=== PATIENT | female | born 1975 | race Two or more races ===

== ENCOUNTER → 2017-02-19 | Outpatient (CLI) | payer OTHER ==
--- NOTE | 2017-02-19 16:07 | RAD ---
DATE: 02/19/2017 EXAM: MAMMO RAVEN THU MONTESAT, BREAST RIGHT HISTORY: Lump right breast. The patient, however, reports that she has not felt this lump for approximately 5 months. COMPARISON: 07/05/2015 FINDINGS: Breast Density: SCATTERED The breast parenchyma shows scattered fibroglandular densities. Breast parenchyma level B. In addition to routine views implant displacement views were obtained. No mass is seen. No suspect calcifications are seen. The area of concern in the right breast was scanned. The right breast was scanned from approximately the 6 to 9:00 position. No mass or abnormality is seen IMPRESSION: Benign findings. If there is a discrete, palpable, mass in either breast biopsy may be warranted despite unremarkable imaging BI-RADS CATEGORY: 2 BENIGN FINDING(S) RECOMMENDED FOLLOW-UP: 12M 12 MONTH FOLLOW-UP PQRS compliance statement: Patient information was entered into a reminder system with a target due date 02/20/2028 for the next mammogram. Mammography is a sensitive method for finding small breast cancers, but it does not detect them all and is not a substitute for careful clinical examination. A negative mammogram does not negate a clinically suspicious finding and should not result in delay in biopsying a clinically suspicious abnormality. "Our facility is accredited by the [employer] Mammography [employer]."
== END ==
LOC: KCIC MAMMO 14:18
PROVIDERS: ATTEND Family Medicine
DX: N63 Unspecified lump in breast (principal)
CPT/HCPCS: 76641; G0204; G0279; 77062; 77066

== ENCOUNTER → 2018-04-20 | Outpatient (CLI) | payer OTHER ==
--- NOTE | 2018-04-21 08:18 | KCIC ---
Bilateral digital screening mammograms with 3D Tomosynthesis: Reason for examination: Routine screening. Comparison is made to previous studies dated 02/19/2017 and 07/05/2015. Bilateral mammograms in CC and oblique projections were obtained with 2-D imaging and 3-D tomosynthesis imaging on a Siemens Inspiration unit and reviewed on the workstation. Interpretation was made with the benefit of CAD. The skin and nipples show no abnormalities. No abnormal axillary lymph nodes are seen. Bilateral breast implants remain present. The breast parenchyma shows scattered fibroglandular density. (Breast density: Category B.) There are no dominant masses, suspicious calcifications or architectural distortions. Impression: No evidence of malignancy. Recommend routine screening. BI-RADS Category 1: Negative. "Our facility is accredited by the [employer] Mammography [employer]." This patient's information has been entered into a reminder system for the patient to be notified with the results of her examination and a target date for the next mammogram. Electronically signed by: Marsha Beverly MD (04/21/2018 8:14 AM) [id number]
== END | disposition home or self-care (01) ==
LOC: KCIC MAMMO 17:23
PROVIDERS: ATTEND Family Medicine
DX: Z12.31 Encounter for screening mammogram for malignant neoplasm of breast (principal)
CPT/HCPCS: 77063; 77067

== ENCOUNTER → 2019-04-26 | Outpatient (CLI) | payer OTHER ==
--- NOTE | 2019-04-26 18:48 | KCIC ---
Bilateral digital screening mammograms with 3-D tomosynthesis: Reason for examination: Routine screening. Comparison is made to previous studies dated 04/20/2018 and 02/19/2017. Bilateral mammograms in CC and oblique projections were obtained with 2-D imaging and 3-D tomosynthesis imaging on a Siemens Inspiration unit and reviewed on the workstation. Interpretation was made with the benefit of CAD. The skin and nipples show no abnormalities. No abnormal axillary lymph nodes are seen. Bilateral breast implants remain present. The breast parenchyma shows scattered fatty and fibroglandular density. (Breast density: Category B.) There are no dominant masses, suspicious calcifications or architectural distortion. Impression: No evidence of malignancy. Recommend routine screening. BI-RAD Category 1: Negative. "Our facility is accredited by the [employer] Mammography [employer]." This patient's information has been entered into a reminder system for the patient to be notified with the results of her examination and a target date for the next mammogram. Electronically signed by: Marsha Beverly MD (04/26/2019 6:45 PM) [id number]
== END | disposition home or self-care (01) ==
LOC: KCIC MAMMO 16:15
PROVIDERS: ATTEND Family Medicine
DX: Z12.31 Encounter for screening mammogram for malignant neoplasm of breast (principal)
CPT/HCPCS: 77063; 77067

== ENCOUNTER → 2020-06-07 | Outpatient (CLI) | payer OTHER ==
--- NOTE | 2020-06-07 16:35 | KCIC ---
EXAM: Pelvis, single view; bilateral knees, standing view; bilateral feet and ankles, 2 views; bilateral hands and wrists, single view. HISTORY: Inflammatory polyarthropathy. COMPARISON: None. FINDINGS: Pelvis: A frontal view of the pelvis is obtained. There is no fracture, dislocation or subluxation. The femoral heads are normal in configuration. Bilateral knees: A frontal view both knees is obtained. There is no fracture, dislocation or subluxation. Bilateral feet and ankles: 2 views of the feet and ankles are obtained. There is no fracture, dislocation or subluxation. The ankle mortise these are intact. There is no osteochondral lesion. Bilateral hands and wrists: A frontal view of the hands and wrists is obtained. There is no fracture, dislocation or subluxation. The alignment and joint spaces are unremarkable. IMPRESSION: No acute osseous finding or radiographic evidence of inflammatory polyarthropathy. Electronically signed by: Ana Coyle MD (06/07/2020 4:32 PM) [id number]
== END ==
LOC: KCIC 15:06
PROVIDERS: ATTEND Family Medicine
DX: M06.4 Inflammatory polyarthropathy (principal); M25.50 Pain in unspecified joint
CPT/HCPCS: 72170; 73120; 73565; 73600

== ENCOUNTER → 2020-06-07 | Outpatient (CLI) | payer OTHER ==
--- NOTE | 2020-06-07 19:31 | KCIC ---
Bilateral digital screening mammograms with 3-D tomosynthesis: Reason for examination: Routine screening. Comparison is made to previous studies dated back to 02/19/2017. Bilateral mammograms in CC and oblique projections were obtained with 2-D imaging and 3-D tomosynthesis imaging on a Siemens Inspiration unit and reviewed on the workstation. Interpretation was made with the benefit of CAD. The skin and nipples show no abnormalities. No abnormal axillary lymph nodes are seen. The breast parenchyma shows scattered fatty and fibroglandular density. (Breast density: Category B.) There appears to be a new circumscribed nodule anterior medially in the left breast at approximately the 10:00 B position 5.5 cm from the nipple and measuring 7.8 mm in length. Recommend further evaluation with ultrasound. There are no other dominant masses, suspicious calcifications or architectural distortion. Impression: Small 7.8 mm circumscribed nodule anterior medially in the left breast on cc view probably around the 10:00 B position 5.5 cm from the nipple. Recommend further evaluation with ultrasound. BI-RADS Category 0: Incomplete. Needs additional imaging evaluation. "Our facility is accredited by the [employer] Mammography Program." This patient's information has been entered into a reminder system for the patient to be notified with the results of her examination and a target date for the next mammogram. Electronically signed by: Marsha Beverly MD (06/07/2020 7:28 PM) [id number]
== END ==
LOC: KCIC MAMMO 15:00
PROVIDERS: ATTEND Family Medicine
DX: Z12.31 Encounter for screening mammogram for malignant neoplasm of breast (principal); N64.89 Other specified disorders of breast
CPT/HCPCS: 77063; 77067

== ENCOUNTER → 2020-06-12 | Outpatient (CLI) | payer OTHER ==
--- NOTE | 2020-06-12 14:22 | RAD ---
Examination: Limited left breast ultrasound. INDICATION: Screening recall for upper inner left breast mass. COMPARISON: Screening mammogram of 06/07/2020 and 04/26/2019 TECHNIQUE: Grayscale and color Doppler imaging of the left breast focused in the upper inner quadrant was performed along with sonographic survey of the left axilla and subareolar breast FINDINGS: At the left 10:00 position 6 cm from the nipple, a parallel orientation triangular-shaped 8mm mass that has slightly irregular margins and is iso to mildly hypoechoic with the breast parenchyma is identified that is of low index of suspicion for malignancy but would benefit from histologic confirmation. No axillary adenopathy or subareolar mass. IMPRESSION: Low index of suspicion for malignancy suspicious 8mm mass at the left 10:00 position 6 cm from the nipple. Ultrasound-guided left breast core needle biopsy is recommended. BI-RADS Category 4 Findings suspicious for malignancy Biopsy recommended. Discussed with patient in person and subsequently with patient's referring physician Dr. Damaris Manley at 1:19 PM on June 12, 2020.
== END ==
LOC: US 12:25
PROVIDERS: ATTEND Family Medicine
DX: R92.8 Other abnormal and inconclusive findings on diagnostic imaging of breast (principal); N63.22 Unspecified lump in the left breast, upper inner quadrant
CPT/HCPCS: 76641